=== PATIENT | male | born 1985 | race African-American/Black ===

== ENCOUNTER 2016-12-23 11:28 | Emergency (ER) | payer OTHER ==
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
== END 2016-12-23 13:24 | disposition home or self-care (01) ==
LOC: SED 11:28
DX: S46.912A Strain of unspecified muscle, fascia and tendon at shoulder and upper arm level, left arm, initial encounter (principal); F17.210 Nicotine dependence, cigarettes, uncomplicated; V49.10XA Passenger injured in collision with unspecified motor vehicles in nontraffic accident, initial encounter
CPT/HCPCS: 71100; 73030; 99284